=== PATIENT | female | born 1985 | race Caucasian/White ===

== ENCOUNTER 2018-01-16 05:49 | Emergency (ER) | payer OTHER ==
[~2018-01-16] VITALS: Ht 154.9 cm; Wt 56.7 kg
[2018-01-16 06:02] VITALS: BP 123/80
[2018-01-16] MEDS ORDERED: DICYCLOMINE HCL10 M1 PO (06:02)
--- NOTE | 2018-01-16 06:10 | ED GI/GU/ABDOMINAL COMPLAINT ---
History of Present Illness General Chief Complaint: Abdominal Pain/Flank Pain Stated Complaint: ABD PAIN, NAUSEA, "I HAVE IBS" PER PT Source: patient Exam Limitations: no limitations Vital Signs & Intake/Output Vital Signs & Intake/Output Vital Signs Date Time Temp Pulse Resp B/P B/P Pulse O2 O2 Flow FiO2 Mean Ox Delivery Rate 01/16 0603 95 Room Air 01/16 0602 98.2 54 18 123/80 95 Room Air Allergies Coded Allergies: No Known Allergies (01/16/18) Reconcile Medications Dicyclomine HCl 10 MG CAPSULE 1 CAP PO Q6P PRN GASTRO, IBS (Reported) Triage Note: TRIAGE: PATIENT TO ER FROM HOME REPORTING RUQ PAIN SINCE MIDNIGHT W/ +NAUSEA, DENIES VOMITTING/ DIARRHEA. LAST PO INTAKE SNACKS AT MIDNIGHT (GRONOLLA, POPCORN). REPORTS PAIN IS SHARP AND BURNING. LAST MENSES 12/29/17. Triage Nurses Notes Reviewed? yes ? N Is pt currently ? No Onset: Gradual Duration: hour(s): Timing: recent history Quality/Severity: burning, cramping Location: epigastric Radiation: no radiation Activities at Onset: sleep Prior Abdominal Problems: similar symptoms Modifying Factors: Improves With: rest. Worsens With: eating, palpation. Associated Symptoms: abdominal pain HPI: 32-year-old woman history of ureteral bowel syndrome presents with 23 hours of mid epigastric abdominal pain. She states that she awoke early this morning with midepigastric pain, "it was so bad I was crying." She noted nausea without vomiting. She states that she felt constipated. She has had a full evaluation by gastroenterology including an EGD, colonoscopy, and pill camera. She has been imaged previously. "They ruled out the gallbladder." She notes that her symptoms began early this morning, last night she ate 2 meatballs and some other food. She is otherwise well. Past History Travel History Traveled to [place] past 21 day No Medical History Any Pertinent Medical History? 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 No Review of Systems Review of Systems Constitutional: Reports: no symptoms. EENTM: Reports: no symptoms. Respiratory: Reports: no symptoms. Cardiovascular: Reports: no symptoms. GI: Reports: no symptoms. Genitourinary: Reports: no symptoms. Musculoskeletal: Reports: no symptoms. Skin: Reports: no symptoms. Neurological/Psychological: Reports: no symptoms. Hematologic/Endocrine: Reports: no symptoms. Immunologic/Allergic: Reports: no symptoms. All Other Systems: Reviewed and Negative Physical Exam Physical Exam Gastrointestinal: see below Comments: Review of Systems - except as otherwise noted in HPI Review of Systems Constitutional:no symptoms. EENTM:no symptoms. Respiratory:no symptoms. Cardiovascular:no symptoms. GI:no symptoms. Genitourinary:no symptoms. Musculoskeletal:no symptoms. Skin:no symptoms. Neurological/Psychological:no symptoms. Hematologic/Endocrine:no symptoms. Immunologic/Allergic:no symptoms. All Other Systems: Reviewed and Negative Physical Exam Physical Exam General Appearance: well developed/nourished, no apparent distress Head: atraumatic, normal appearance Eyes: Bilateral: normal appearance. Ears, Nose, Throat: normal pharynx, normal ENT inspection Neck: normal inspection, supple, full range of motion Respiratory: normal breath sounds, chest non-tender, no respiratory distress, quiet respiration, lungs clear Cardiovascular: regular rate/rhythm Gastrointestinal: normal bowel sounds, soft, mild midepigastric tenderness to palpation, no right upper quadrant tenderness. No Kumar's sign. Nondistended. Back: normal inspection, normal range of motion Extremities: normal inspection, normal capillary refill, normal range of motion, no edema Neurologic/Psych: no motor/sensory deficits, awake, alert, oriented x 3 Skin: intact, normal color, warm/dry Core Measures ACS in differential dx? No Sepsis Present: No Sepsis Focused Exam Completed? No Progress Differential Diagnosis: IRRITABLE BOWEL SYNDROME VERSUS REFLUX VERSUS OTHER Plan of Care: Orders Procedure Date/time Status LIPASE 01/17 604 Complete HUMAN BETA HCG SCREEN 01/17 604 Complete COMPREHENSIVE METABOLIC PANEL 01/17 604 Complete CBC WITHOUT DIFFERENTIAL 01/17 604 Complete AMYLASE 01/17 604 Complete Laboratory Tests 01/16/18 0607: Anion Gap 9, Estimated GFR > 60, BUN/Creatinine Ratio 13.8, Glucose 107 H, Calcium 9.3, Total Bilirubin 0.4, AST 16, ALT 25, Alkaline Phosphatase 57, Total Protein 6.6, Albumin 3.9, Globulin 2.7, Albumin/Globulin Ratio 1.4, Amylase 53, Lipase 64, Total Beta HCG NEGATIVE, CBC w Diff NO MAN DIFF REQ, RBC 4.63, MCV 88.9, MCH 29.8, MCHC 33.5, RDW 12.9, MPV 7.6, Gran % 54.6, Lymphocytes % 33.8, Monocytes % 8.4, Eosinophils % 2.6, Basophils % 0.6, Absolute Granulocytes 4.8, Absolute Lymphocytes 3.0, Absolute Monocytes 0.7 H, Absolute Eosinophils 0.2, Absolute Basophils 0.1 Initial ED EKG: none Departure Departure Disposition: HOME OR SELF CARE Condition: Stable Clinical Impression Primary Impression: Abdominal pain Secondary Impressions: Irritable bowel syndrome Referrals: Gio OLIVERA,Erica Trammell (PCP/Family) Departure Forms: Customer Survey General Discharge Information Comments 01/16/18, 6:43AM.... pt feeling better after supportive medications... given her prior work up, known diagnosis of ibs, benign labs, and clinical response, will defer imaging. close follow up advised.
[2018-01-16 06:20] LABS: ABSOLUTE BASOPHIL COUNT 0.1 /CUMM (0.0-0.2); ABSOLUTE EOSINOPHIL COUNT 0.2 /CUMM (0.0-0.7); ABSOLUTE GRANULOCYTE CT 4.8 /CUMM (1.4-6.5); ABSOLUTE MONOCYTE COUNT 0.7 /CUMM (0.10-0.60); BASOPHIL % 0.6 % (0.0-2.0); EOSINOPHIL % 2.6 % (0-5); GRANULOCYTE % 54.6 % (42.2-75.2); HEMATOCRIT 41.1 % (37-47); MEAN CORPUSCULAR HGB 29.8 PG (27.0-31.0); MEAN CORPUSCULAR HGB CONC 33.5 G/DL (33.0-37.0); MEAN CORPUSCULAR VOLUME 88.9 FL (81.0-99.0); MEAN PLATELET VOLUME 7.6 FL (7.4-10.4); PLATELET COUNT 276 /CUMM (130-400); RBC DISTRIBUTION WIDTH 12.9 % (11.5-14.5); RED BLOOD CELL CT 4.63 /CUMM (4.20-5.40); WHITE BLOOD CELL COUNT 8.9 /CUMM (4.8-10.8)
== END 2018-01-16 06:50 ==
LOC: ERH 05:49
PROVIDERS: Emergency Medicine
DX: K58.9 Irritable bowel syndrome, unspecified (principal)
CPT/HCPCS: J3101